=== PATIENT | male | born 1960 | race Caucasian/White ===

== ENCOUNTER 2017-01-22 09:50 | Emergency (ER) | payer OTHER ==
[~2017-01-22] VITALS: Ht 172.7 cm; Wt 72.6 kg
[~2017-01-22 09:50] MED LIST: ATORVASTATIN CA10 M1 PO; CHILDREN'S ASPI81 M1 PO; CILOSTAZOL50 M1 PO; LISINOPRIL20 M1 PO; NORCO 325 MG-51 TAB PO; NORFLEX100 MG PO; TRAMADOL HCL50 M1 PO; VITAMIN D3400 UNIT PO
[2017-01-22 09:56] VITALS: BP 143/87
--- NOTE | 2017-01-22 10:45 | ED SKIN/ALLERGY COMPLAINT ---
History of Present Illness General Chief Complaint: Skin Rash/ Abcess Stated Complaint: RASH ON BACK Source: patient Exam Limitations: no limitations Vital Signs & Intake/Output Vital Signs & Intake/Output Vital Signs Date Time Temp Pulse Resp B/P B/P Pulse O2 O2 Flow FiO2 Mean Ox Delivery Rate 01/22 1016 97 Room Air Room Air 01/22 0956 98.7 96 18 143/87 98 Room Air Allergies Coded Allergies: NO KNOWN ALLERGIES (06/30/16) Reconcile Medications Aspirin (Children's Aspirin) 81 MG TAB.CHEW 81 MG PO D HEART HEALTH (Reported ) Atorvastatin Calcium 10 MG TABLET 1 TAB PO QHS CHOLESTEROL (Reported) Cholecalciferol (Vitamin D3) (Vitamin D3) 400 UNIT CAPSULE 400 UNIT PO EOD SUPPLEMENT (Reported) Cilostazol 50 MG TABLET 1 TAB PO BID BLOOD FLOW (Reported) Famciclovir 500 MG TABLET 1 TAB PO TID PRN shingles Lisinopril 20 MG TABLET 1 TAB PO DAILY BP (Reported) Tramadol HCl (Ultram) 50 MG TABLET 1-2 TAB PO Q6P PRN PAIN Tramadol HCl 50 MG TABLET 1 TAB PO Q6HR PRN PAIN Triage Note: 56 YO MALE TO TRIAGE C/O RASH ON UPPER R SIDE OF BACK, STATES PAIN RADIATES AROUND RIB CAGE ON THE RIGHT. STATES RASH IS NOT ITCHY, STATES IT IS PAINFUL. ?BITE TO BACK PER PT. Triage Nurses Notes Reviewed? yes Onset: Abrupt Duration: hour(s):, constant, continues in ED, getting worse Severity: severe Location: back HPI: Patient presents for evaluation of a painful bump in the right mid to upper back that was first noted on Sunday. Patient states he woke with some pain in the area but then yesterday noticed a small bump. He states he has a combination of a pressure feeling and "like a punch". The pain seems to be more diffuse than the bump itself. No associated fever or cold symptoms. Rash has been constant and the pain is described as severe. Nothing seems to make him feel better. Past History Travel History Traveled to [place] past 21 day No Medical History Any Pertinent Medical History? see below for history Cardiovascular: hypertension, hyperlipidemia Renal: nephrolithiasis Musculoskeletal: DEGENERATIVE DISC DISEASE SHOULDER BURSITIS ARTHRITIS Surgical History Surgical History: non-contributory Psychosocial History What is your primary language Amharic Tobacco Use: Current Daily Use Daily Tobacco Use Amount/Type: => 5 Cigarettes daily Family History Hx Contributory? No Review of Systems Review of Systems Constitutional: Reports: no symptoms. EENTM: Reports: no symptoms. Respiratory: Reports: no symptoms. Cardiovascular: Reports: no symptoms. GI: Reports: no symptoms. Genitourinary: Reports: no symptoms. Musculoskeletal: Reports: no symptoms. Skin: Reports: see HPI. Neurological/Psychological: Reports: no symptoms. Hematologic/Endocrine: Reports: no symptoms. Immunologic/Allergic: Reports: no symptoms. All Other Systems: Reviewed and Negative Physical Exam Physical Exam General Appearance: see below Comments: Gen.: Well-nourished, well-developed, no acute respiratory distress. Head: Normocephalic, atraumatic. Eyes: Normal inspection bilaterally Ears: Normal inspection bilaterally Nose: Normal inspection Throat/mouth : Moist mucosa Neck: Supple, full range of motion, no goiter Lungs: Quiet respirations Back: Normal range of motion Abdomen: Soft, nontender, nondistended, normal bowel sounds Extremities: Normal range of motion grossly, equal radial pulses, no cyanosis clubbing or edema Neurologic: Cranial nerves grossly intact, speech is clear Skin: warm and dry, vesicular rash with erythematous base of the right mid back Psychiatric: Calm, cooperative, no apparent delusions or hallucinations Diagram Body: 1) rash Progress Differential Diagnosis: shingles Plan of Care: Famvir, pain control, PMD follow-up Departure Departure Disposition: HOME OR SELF CARE Condition: Stable Clinical Impression Primary Impression: Shingles Qualifiers: Herpes zoster complications: without complications Qualified Code: B02.9 - Zoster without complications Referrals: AILIN BACA (PCP/Family) Additional Instructions: Famvir as prescribed. ibuprofen 600mg every 6 hours as needed for pain. add tramadol if needed. followup with your doctor in one week. return if any concerns or worsening. Thank you for choosing the [facility] Emergency Department for your care. It was a pleasure to serve you today. Max Booth M.D. [facility] Departure Forms: Customer Survey General Discharge Information Prescriptions: Current Visit Scripts Famciclovir 1 TAB PO TID PRN shingles #21 TAB Tramadol HCl (Ultram) 1-2 TAB PO Q6P PRN PAIN #20 TAB
[2017-01-22] MEDS ORDERED: ULTRAM50 M1 PO (10:50)
[2017-01-22] MEDS ORDERED: FAMCICLOVIR500 M1 PO (10:50)
== END 2017-01-22 11:17 ==
LOC: ERH 09:50
DX: B02.9 Zoster without complications (principal)

== ENCOUNTER 2018-04-30 13:54 | Emergency (ER) | payer OTHER ==
[~2018-04-30] VITALS: Ht 172.7 cm; Wt 72.6 kg
[~2018-04-30 13:54] MED LIST changes: +FAMCICLOVIR500 M1 PO; +ULTRAM50 M1 PO
--- NOTE | 2018-04-30 15:03 | ED SKIN/ALLERGY COMPLAINT ---
History of Present Illness General Chief Complaint: General Adult Stated Complaint: HALF DOLLAR SIZE LUMP ON LOWER ABD Source: patient Exam Limitations: no limitations Vital Signs & Intake/Output Vital Signs & Intake/Output Vital Signs Date Time Temp Pulse Resp B/P B/P Pulse O2 O2 Flow FiO2 Mean Ox Delivery Rate 04/30 1708 100 18 138/70 97 Room Air 04/30 1650 Room Air 04/30 1408 97.0 97 15 103/66 95 Room Air Room Air Allergies Coded Allergies: No Known Allergies (04/30/18) Reconcile Medications Aspirin (Children's Aspirin) 81 MG TAB.CHEW 81 MG PO D HEART HEALTH (Reported ) Atorvastatin Calcium 10 MG TABLET 1 TAB PO QHS CHOLESTEROL (Reported) Cholecalciferol (Vitamin D3) (Vitamin D3) 400 UNIT CAPSULE 400 UNIT PO EOD SUPPLEMENT (Reported) Cilostazol 50 MG TABLET 1 TAB PO BID BLOOD FLOW (Reported) Famciclovir 500 MG TABLET 1 TAB PO TID PRN shingles Lisinopril 20 MG TABLET 1 TAB PO DAILY BP (Reported) Oxycodone HCl/Acetaminophen (Percocet 5-325 MG Tablet) 5 MG-325 MG TABLET 1-2 TAB PO Q6P PRN pain Sulfamethoxazole/Trimethoprim (Bactrim Ds Tablet) 800 MG-160 MG TABLET 1 TAB PO BID abscess Tramadol HCl (Ultram) 50 MG TABLET 1-2 TAB PO Q6P PRN PAIN Tramadol HCl 50 MG TABLET 1 TAB PO Q6HR PRN PAIN Triage Note: PT TO ED FOR C/C OF ABCESS TO LOWER ABD. NOTED TO BE VERY RED AND SWOLLEN IN TRIAGE. AFEBRILE. Triage Nurses Notes Reviewed? yes Onset: Abrupt Duration: day(s): Timing: recent history Severity: moderate, severe HPI: 57-year-old male comes into the emergency room for further evaluation of redness and swelling to her lower abdomen. Symptoms been going on for days and has been getting progressively worse. Denies any fever chills. Patient reports it started as a small dog and then got much larger over time. (Winston Salvdaor) Past History Travel History Traveled to [place] past 21 day No Medical History Any Pertinent Medical History? 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 No (Winston Salvador) Review of Systems Review of Systems Constitutional: Reports: no symptoms. EENTM: Reports: no symptoms. Respiratory: Reports: no symptoms. Cardiovascular: Reports: no symptoms. GI: Reports: no symptoms. Genitourinary: Reports: no symptoms. Musculoskeletal: Reports: no symptoms. Skin: Reports: see HPI. Neurological/Psychological: Reports: no symptoms. Hematologic/Endocrine: Reports: no symptoms. Immunologic/Allergic: Reports: no symptoms. All Other Systems: Reviewed and Negative (Winston Salvador) Physical Exam Physical Exam General Appearance: well developed/nourished, mild distress Head: atraumatic Eyes: Bilateral: normal appearance. Ears, Nose, Throat: normal ENT inspection, hearing grossly normal Neck: normal inspection Respiratory: no respiratory distress Back: normal inspection Extremities: normal inspection, normal range of motion, no edema Neurologic/Psych: awake, alert, oriented x 3, normal mood/affect Skin: intact, rash, redness and swelling to abdomen, fluctuance, no drainage, approximately 4 x 4 centimeters (Winston Salvador) Progress Differential Diagnosis: abscess/cellulitis, contact dermatitis Plan of Care: Orders Procedure Date/time Status TRUNK AREA CULTURE 04/30 1700 Active Microbiology 04/30 1700 TRUNK: Culture & Sensitivity - RECD 04/30 1700 TRUNK: Gram Stain - RECD Comments: 04/30/2018 5:05:08 PM Patient clinically looks well. In no apparent distress. Patient was told to return in 2 days for packing removal. (Winston Salvador) Departure Departure Disposition: HOME OR SELF CARE Condition: Stable Clinical Impression Primary Impression: Abscess of skin Referrals: Wendy Stone APRN (PCP/Family) Additional Instructions: Continue Bactrim as prescribed. Follow-up with primary care doctor. Return if any concerns worsening symptoms. Please go over all results of today's visit with your primary care doctor. Contact your primary care doctor to let them know you were here in the emergency room. There may be nonspecific findings which may not be related to your visit today here in the emergency room but may require further evaluation and chronic monitoring by your primary care doctor. If you had a laceration today the chance of foreign body always remains. You should follow-up with your primary care doctor for recheck in 3-5 days for a wound check. If you had an x-ray done there is a chance that a fracture could have been missed on initial read and you should follow-up with your primary care doctor for repeat x-rays if symptoms persist. If your blood pressure was elevated here in the emergency room please have rechecked by [facility] primary care doctor within the next 48. If you were prescribed a narcotic here in the emergency room or any type of controlled substances you're not allowed to drive while taking this medication or operate any type of heavy machinery. Narcotics can make you feel lightheaded dizziness nausea and can cause constipation. You may need to sweet pickled fruit maker a stool softener. Thank you for choosing [facility] emergency room. Please return to the emergency room immediately if you have any other concerns worsening of symptoms. Departure Forms: Customer Survey General Discharge Information Prescriptions: Current Visit Scripts Sulfamethoxazole/Trimethoprim (Bactrim Ds Tablet) 1 TAB PO BID #20 TAB Oxycodone HCl/Acetaminophen (Percocet 5-325 MG Tablet) 1-2 TAB PO Q6P PRN pain #15 TAB (Winston Salvador) PA/ROSE GRADING SUPERVISOR Co-Sign Statement Statement: ED Attending supervision documentation- [] I saw and evaluated the patient. I have also reviewed all the pertinent lab results and diagnostic results. I agree with the findings and the plan of care as documented in the PA's/ROSE GRADING SUPERVISOR's documentation. [X] I have reviewed the ED Record and agree with the PA's/ROSE GRADING SUPERVISOR's documentation. [] Additions or exceptions (if any) to the PAs/ROSE GRADING SUPERVISOR's note and plan are summarized below: [] (Max Byers DO) Procedures Incision and Drainage Site: lower abdomen Blade Size: 11 I & D Procedure: Yes: betadine prep, sterile drapes applied, sterile dressing applied, wick placed. Progress: 1% lidocaine, 5 mL injected, purulent discharge, culture obtained, approximately 8-10 mL of purulent discharge obtained (Winston Salvador)
[2018-04-30] MEDS ORDERED: BACTRIM DS TAB1 EACH PO (16:58)
[2018-04-30] MEDS ORDERED: PERCOCET 5-3251 EACH PO (16:58)
[2018-04-30 17:08] VITALS: BP 138/70
== END 2018-04-30 17:10 ==
LOC: ERH 13:54
DX: L02.211 Cutaneous abscess of abdominal wall (principal); F17.210 Nicotine dependence, cigarettes, uncomplicated; I10 Essential (primary) hypertension; Z79.82 Long term (current) use of aspirin
CPT/HCPCS: 87070; J2001

== ENCOUNTER 2018-05-02 11:05 | Emergency (ER) | payer OTHER ==
[~2018-05-02] VITALS: Ht 172.7 cm; Wt 72.6 kg
[~2018-05-02 11:05] MED LIST changes: +BACTRIM DS TAB1 EACH PO; +PERCOCET 5-3251 EACH PO
--- NOTE | 2018-05-02 12:05 | ED ANIMAL BITE/WOUND CHECK ---
History of Present Illness General Chief Complaint: Suture Removal/Wound Recheck Stated Complaint: WOUND CHECK Source: patient Exam Limitations: no limitations Vital Signs & Intake/Output Vital Signs & Intake/Output Vital Signs Date Time Temp Pulse Resp B/P B/P Pulse O2 O2 Flow FiO2 Mean Ox Delivery Rate 05/02 1235 71 111/77 97 Room Air 05/02 1139 96.9 80 18 98/63 97 Room Air Room Air ED Intake and Output 05/03 0000 05/02 1200 Intake Total Output Total Balance Patient 160 lb Weight Weight Reported by Patient Measurement Method Allergies Coded Allergies: No Known Allergies (04/30/18) Reconcile Medications Aspirin (Children's Aspirin) 81 MG TAB.CHEW 81 MG PO D HEART HEALTH (Reported ) Atorvastatin Calcium 10 MG TABLET 1 TAB PO QHS CHOLESTEROL (Reported) Cholecalciferol (Vitamin D3) (Vitamin D3) 400 UNIT CAPSULE 400 UNIT PO EOD SUPPLEMENT (Reported) Cilostazol 50 MG TABLET 1 TAB PO BID BLOOD FLOW (Reported) Famciclovir 500 MG TABLET 1 TAB PO TID PRN shingles Lisinopril 20 MG TABLET 1 TAB PO DAILY BP (Reported) Oxycodone HCl/Acetaminophen (Percocet 5-325 MG Tablet) 5 MG-325 MG TABLET 1-2 TAB PO Q6P PRN pain Sulfamethoxazole/Trimethoprim (Bactrim Ds Tablet) 800 MG-160 MG TABLET 1 TAB PO BID abscess Tramadol HCl (Ultram) 50 MG TABLET 1-2 TAB PO Q6P PRN PAIN Tramadol HCl 50 MG TABLET 1 TAB PO Q6HR PRN PAIN Triage Note: PT TO ED FOR WOUND CHECK OF ABD ABCESS I&D'D 2 DAYS AGO. Triage Nurses Notes Reviewed? yes Onset: Abrupt Duration: day(s):, constant Timing: recent history Injury Environment: home HPI: 57-year-old male comes into the emergency room for a wound check on his abscess. Patient had an abscess drained 2 days ago on his abdomen. Patient is currently on Bactrim. Denies any fever chills. He comes in for further evaluation. (Winston Salvador) Past History Travel History Traveled to [place] past 21 day No Medical History Any Pertinent Medical History? 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 No (Winston Salvador) Review of Systems Review of Systems Constitutional: Reports: no symptoms. EENTM: Reports: no symptoms. Respiratory: Reports: no symptoms. Cardiovascular: Reports: no symptoms. GI: Reports: no symptoms. Genitourinary: Reports: no symptoms. Musculoskeletal: Reports: no symptoms. Skin: Reports: see HPI. Neurological/Psychological: Reports: no symptoms. Hematologic/Endocrine: Reports: no symptoms. Immunologic/Allergic: Reports: no symptoms. All Other Systems: Reviewed and Negative (Winston Salvador) Physical Exam Physical Exam General Appearance: well developed/nourished, mild distress Head: atraumatic Eyes: Bilateral: normal appearance. Ears, Nose, Throat: normal ENT inspection, hearing grossly normal Neck: normal inspection Respiratory: no respiratory distress Gastrointestinal: packing removed, no erythema, some mild induration, Back: normal inspection Extremities: normal range of motion Neurologic/Psych: awake, alert, oriented x 3, normal mood/affect Skin: intact, normal color, warm/dry Lymphatic: no anterior cervical lenin (Winston Salvador) Progress Differential Diagnosis: abscess, cellulitis, joint infection, tenosysnovitis Plan of Care: 05/02/2018 12:48:00 PM Patient clinically looks well. In no apparent distress. Nontoxic-appearing. Abscesses significantly improved from other day. (Winston Salvador) Departure Departure Disposition: HOME OR SELF CARE Condition: Stable Clinical Impression Primary Impression: Encounter for recheck of abscess following incision and drainage Referrals: Wendy Stone APRN (PCP/Family) Additional Instructions: Continue taking Bactrim. Warm compresses and sitz baths. Return in 5 days for a [place] wound check. Please go over all results of today's visit with your primary care doctor. Contact your primary care doctor to let them know you were here in the emergency room. There may be nonspecific findings which may not be related to your visit today here in the emergency room but may require further evaluation and chronic monitoring by your primary care doctor. If you had a laceration today the chance of foreign body always remains. You should follow-up with your primary care doctor for recheck in 3-5 days for a wound check. If you had an x-ray done there is a chance that a fracture could have been missed on initial read and you should follow-up with your primary care doctor for repeat x-rays if symptoms persist. If your blood pressure was elevated here in the emergency room please have rechecked by our primary care doctor within the next 48. If you were prescribed a narcotic here in the emergency room or any type of controlled substances you're not allowed to drive while taking this medication or operate any type of heavy machinery. Narcotics can make you feel lightheaded dizziness nausea and can cause constipation. You may need to bean picker a stool softener. Thank you for choosing [facility] emergency room. Please return to the emergency room immediately if you have any other concerns worsening of symptoms. Departure Forms: Customer Survey General Discharge Information (Winston Salvador) PA/PANTOGRAPH MACHINE OPERATOR Co-Sign Statement Statement: ED Attending supervision documentation- I saw and evaluated the patient. I have also reviewed all the pertinent lab results and diagnostic results. I agree with the findings and the plan of care as documented in the PA's/PANTOGRAPH MACHINE OPERATOR's documentation. x I have reviewed the ED Record and agree with the PA's/PANTOGRAPH MACHINE OPERATOR's documentation. [] Additions or exceptions (if any) to the PAs/PANTOGRAPH MACHINE OPERATOR's note and plan are summarized below: [] (Bear BAKER,Luis Daniel)
[2018-05-02 12:35] VITALS: BP 111/77
== END 2018-05-02 12:49 ==
LOC: ERH 11:05
DX: Z48.01 Encounter for change or removal of surgical wound dressing (principal)

== ENCOUNTER 2018-05-07 10:13 | Emergency (ER) | payer OTHER ==
[~2018-05-07] VITALS: Ht 172.7 cm; Wt 72.6 kg
[2018-05-07 10:16] VITALS: BP 117/72
--- NOTE | 2018-05-07 11:23 | ED ANIMAL BITE/WOUND CHECK ---
History of Present Illness General Chief Complaint: Suture Removal/Wound Recheck Stated Complaint: WOUND RECHECK Source: patient Exam Limitations: no limitations Vital Signs & Intake/Output Vital Signs & Intake/Output Vital Signs Date Time Temp Pulse Resp B/P B/P Pulse O2 O2 Flow FiO2 Mean Ox Delivery Rate 05/07 1016 96.4 72 20 117/72 94 Room Air ED Intake and Output 05/08 0000 05/07 1200 Intake Total Output Total Balance Patient 160 lb Weight Weight Estimated Measurement Method Allergies Coded Allergies: No Known Allergies (04/30/18) Reconcile Medications Aspirin (Children's Aspirin) 81 MG TAB.CHEW 81 MG PO D HEART HEALTH (Reported ) Atorvastatin Calcium 10 MG TABLET 1 TAB PO QHS CHOLESTEROL (Reported) Cilostazol 50 MG TABLET 1 TAB PO BID BLOOD FLOW (Reported) Lisinopril 20 MG TABLET 1 TAB PO DAILY BP (Reported) Sulfamethoxazole/Trimethoprim (Bactrim Ds Tablet) 800 MG-160 MG TABLET 1 TAB PO BID abscess Triage Note: PT TO ED FOR WOUND CHECK TO LEFT ABD. HAD I&D TO ABSCESS ON 04/30. Triage Nurses Notes Reviewed? yes Onset: Abrupt Duration: week(s): (1), constant, continues in ED Timing: single episode today Injury Environment: home Is Injury an Animal Bite? No No Modifying Factors: none HPI: 57-year-old male history of hypertension hyperlipidemia presents for an abscess recheck. On the fourth of this month patient had an incision and drainage of an abscess to his left abdominal wall. He was started on antibiotics. He feels like the abscess is healing well. There is still some purulent discharge. No fevers or spreading redness no swelling. Past History Travel History Traveled to [place] past 21 day No Medical History Any Pertinent Medical History? 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 No Review of Systems Review of Systems Constitutional: Reports: no symptoms. EENTM: Reports: no symptoms. Respiratory: Reports: no symptoms. Cardiovascular: Reports: no symptoms. GI: Reports: no symptoms. Genitourinary: Reports: no symptoms. Musculoskeletal: Reports: no symptoms. Skin: Reports: see HPI (ABSCESS). Neurological/Psychological: Reports: no symptoms. Hematologic/Endocrine: Reports: no symptoms. Immunologic/Allergic: Reports: no symptoms. All Other Systems: Reviewed and Negative Physical Exam Physical Exam General Appearance: well developed/nourished, no apparent distress, alert, awake Head: atraumatic, normal appearance Eyes: Bilateral: normal appearance, EOMI. Ears, Nose, Throat: hearing grossly normal Neck: normal inspection, supple, full range of motion Respiratory: no respiratory distress Gastrointestinal: soft, non-tender Back: normal inspection, normal range of motion Extremities: normal range of motion Neurologic/Psych: no motor/sensory deficits, awake, alert, oriented x 3, normal gait Skin: intact, normal color, warm/dry, ABDOMINAL WALL ABSCESS IS HEALING WELL. sMALL AMOUNT OF PURULENT DISCHARGE THERE IS ABOUT A 1 CM DIAMETER AREA OF INDURATION AND NO ERYTHEMA IS SIGNIFICANTLY IMPROVED COMPARED TO PREVIOUS Progress Differential Diagnosis: abscess, cellulitis Plan of Care: Patient was instructed to continue antibiotics for the full course change dressing once daily apply warm compresses. Follow-up in another 5-7 days to ensure resolution. Discussed return precautions return sooner if any concerns patient agrees the plan Departure Departure Disposition: HOME OR SELF CARE Condition: Stable Clinical Impression Primary Impression: Abscess re-check Referrals: Wendy Stone APRN (PCP/Family) Additional Instructions: Finish antibiotics for the full course. Apply warm compresses for 15-20 minutes every few hours. Change dressing once daily. Monitor symptoms return with any concerns Departure Forms: Customer Survey General Discharge Information
== END 2018-05-07 11:38 ==
LOC: ERH 10:13
DX: Z48.00 Encounter for change or removal of nonsurgical wound dressing (principal)